=== PATIENT | female | born 1965 | race Caucasian/White ===

== ENCOUNTER 2021-04-10 04:09 | Emergency (ER) | payer MEDICAID ==
[~2021-04-10] VITALS: Ht 175.3 cm; Wt 119.7 kg
[~2021-04-10 04:09] MED LIST: AMOX-999 PO; MIRABULK PO; PROM473S5 PO; RANI-287 PO
[2021-04-10 04:22] VITALS: BP 119/67
--- NOTE | 2021-04-10 04:25 | NUR ---
TO LOBBY A/W BED AMBULATORY
--- NOTE | 2021-04-10 04:30 | NUR ---
PATIENT LEFT WITHOUT BEING SEEN BY DR. MOULTON. NO FURTHER CARE PROVIDED FOR PATIENT.
== END 2021-04-10 04:30 | disposition left against medical advice (07) ==
LOC: MED 04:09
DX: M79.89 Other specified soft tissue disorders (principal); M54.5 Low back pain; Z53.21 Procedure and treatment not carried out due to patient leaving prior to being seen by health care provider

== ENCOUNTER 2021-05-01 11:32 | Emergency (ER) | payer MEDICAID ==
[~2021-05-01] VITALS: Ht 175.3 cm; Wt 125.6 kg
[2021-05-01 11:46] VITALS: BP 125/69
== END 2021-05-01 11:58 | disposition left against medical advice (07) ==
LOC: MED 11:32
DX: M54.9 Dorsalgia, unspecified (principal); M79.89 Other specified soft tissue disorders; Z53.21 Procedure and treatment not carried out due to patient leaving prior to being seen by health care provider

== ENCOUNTER 2021-12-03 01:40 | Emergency (ER) | payer MEDICAID, OTHER ==
[~2021-12-03] VITALS: Ht 175.3 cm; Wt 120.2 kg
[2021-12-03 01:44] VITALS: BP 150/90
--- NOTE | 2021-12-03 01:44 | NUR ---
TO BED AMBULATORY
[2021-12-03] MEDS ORDERED: ONDANSETRON 4 MG/2 ML VIAL IVP ONE (02:25)
[2021-12-03] MEDS ORDERED: fentaNYL citrate 0.05 MG/ML VIAL IVP ONE (02:25)
[2021-12-03 03:33] LABS: HEMOGLOBIN 11.7 g/dL (12.0-16.0)
[2021-12-03 03:37] LABS: BASOPHILS % (AUTO) 0.5 % (0.0-2.0); EOSINOPHILS # (AUTO) 0.1 K/uL (0-0.4); HEMATOCRIT 35.2 % (36-48); LYMPHOCYTES % (AUTO) 27.6 % (20.5-51.1); MEAN CORPUSCULAR HEMOGLOBIN 28 pg (27-31); MEAN CORPUSCULAR HGB CONC 33 g/dL (33-37); MONOCYTES # (AUTO) 0.8 K/uL (0.8-1.0); MONOCYTES % (AUTO) 10.9 % (1.7-9.3); NEUTROPHILS # (AUTO) 4.3 K/uL (1.8-7.7); PLATELET COUNT (AUTO) 334 K/uL (140-450); RED BLOOD CELL COUNT(AUTO) 4.19 MIL/uL (4.20-5.40); WHITE BLOOD COUNT (AUTO) 7.4 K/uL (4.8-10.8)
[2021-12-03 03:52] LABS: ALBUMIN 3.6 g/dL (3.4-5.0); CARBON DIOXIDE 31.7 mmol/L (21-32); POTASSIUM 3.7 mmol/L (3.5-5.1); TOTAL BILIRUBIN 0.4 mg/dL (0.0-1.0)
[2021-12-03] MEDS ORDERED: NACL 0.9% 1,000 ML IV ONE (03:55)
[2021-12-03] MEDS ORDERED: KETOROLAC 30 MG/ML VIAL IVP ONE (04:15)
--- NOTE | 2021-12-03 05:21 | NUR ---
URINE SAMPLE SENT TO LAB
[2021-12-03 05:53] LABS: BILIRUBIN,URINE 1+ (NEGATIVE); BLOOD, URINE TRACE-I (NEGATIVE); COLOR,URINE YELLOW (YELLOW); LEUKOCYTE ESTERASE ,URINE NEGATIVE (NEGATIVE); NITRITE, URINE NEGATIVE (NEGATIVE); UGLUCOSE NEGATIVE (NEGATIVE)
[2021-12-03 05:58] LABS: APPEARANCE,URINE HAZY (CLEAR)
[2021-12-03 06:11] LABS: RBC,URINE 0-5 /HPF (0-5)
[2021-12-03 06:13] LABS: CALCIUM OXALATE CRYSTALS,UR 0-10 /HPF (None Seen); URINE AMORPHOUS URATE 1+ /HPF (None Seen); YEAST,URINE Few /HPF (None Seen)
[2021-12-03 06:14] LABS: HYALINE CASTS, URINE 0-10 /LPF (None Seen)
[2021-12-03] MEDS ORDERED: BEN10 PO (06:35)
[2021-12-03 06:41] VITALS: BP 131/71
[2021-12-03] MEDS ORDERED: PRED20TA5 PO (06:43)
--- NOTE | 2021-12-03 06:55 | NUR ---
Patient discharged with v/s stable. Written and verbal after care instructions given and explained. Patient alert, oriented and verbalized understanding of instructions. Ambulatory with steady gait. All questions addressed prior to discharge. ID band removed. Patient advised to follow up with PMD. Rx of BENTYL AND DELTASONE given. Patient educated on indication of medication including possible reaction and side effects. Opportunity to ask questions provided and answered.
== END 2021-12-03 06:55 | disposition home or self-care (01) ==
LOC: MED 01:40
DX: R10.9 Unspecified abdominal pain (principal); R11.2 Nausea with vomiting, unspecified; K21.9 Gastro-esophageal reflux disease without esophagitis; Z98.890 Other specified postprocedural states; Z79.899 Other long term (current) drug therapy; Z88.5 Allergy status to narcotic agent; Z88.1 Allergy status to other antibiotic agents; Z88.2 Allergy status to sulfonamides
CPT/HCPCS: 36415; 74176; 80053; 81001; 83690; 85025; 87086; 96361; 96374; 96375; 99284; J1885; J2405; J3010

== ENCOUNTER 2022-08-04 08:49 | Emergency (ER) | payer OTHER ==
[~2022-08-04] VITALS: Ht 175.3 cm; Wt 132.6 kg
[~2022-08-04 08:49] MED LIST changes: +BEN10 PO; +CIPR500T4 PO; +PRED20TA5 PO
[2022-08-04 08:50] VITALS: BP 176/87
--- NOTE | 2022-08-04 09:03 | NUR ---
PATIENT AMBULATED TO BED 9.
--- NOTE | 2022-08-04 09:35 | NUR ---
PT 57 YO FEMALE, COMPLAINING OF ABD PAIN BIB SELF. PT IS A/O X4 NO ANDERSON OR DIZZINESS. PT PRESENTED WITH BILATERAL LEG EDEMA +1, DENIES CHEST PAIN LUNG SOUNDS CLEAR NO COUGH NO SOB. PT ABD FIRM AND WARM, SLIGHT DISTENTION LBM LAST NIGHT DENIES VOMITING, STATES SHE HAS BEEN DRY HEAVING. PT STATES URINE IS DARK AND URINATES FREQUENTLY. PT HAS STEADY GAIT. SKIN IS INTACT. HS: PARKINSONS, ULCERATIVE COLITIS, CARDIAC DYSRHYMIA. MEDS: METROPOLOL ALLERGIES: Sulfa, trimethoprim, adverse reaction to morphine codeine and hydromorphone Noted by Darrell Tellez RN
[2022-08-04] MEDS ORDERED: MORPHINE SULFATE 10 MG/ML VIAL IM ONE (09:40)
[2022-08-04] MEDS ORDERED: ONDANSETRON 4 MG ODT PO ONE (09:40)
[2022-08-04 09:54] LABS: APPEARANCE,URINE SL CLOUDY (CLEAR); BILIRUBIN,URINE NEGATIVE (NEGATIVE); BLOOD, URINE TRACE-I (NEGATIVE); COLOR,URINE YELLOW (YELLOW); LEUKOCYTE ESTERASE ,URINE 2+ (NEGATIVE); NITRITE, URINE NEGATIVE (NEGATIVE); UGLUCOSE NEGATIVE (NEGATIVE)
[2022-08-04 09:59] LABS: BASOPHILS % (AUTO) 0.6 % (0.0-2.0); EOSINOPHILS # (AUTO) 0.2 K/uL (0-0.4); EOSINOPHILS % (AUTO) 2.5 % (0.0-4.0); HEMATOCRIT 34.3 % (36-48); LYMPHOCYTES # (AUTO) 2.1 K/uL (2.5-16.5); LYMPHOCYTES % (AUTO) 28.4 % (20.5-51.1); MEAN CORPUSCULAR HEMOGLOBIN 24 pg (27-31); MEAN CORPUSCULAR HGB CONC 32 g/dL (33-37); MEAN CORPUSCULAR VOLUME 75.2 fL (80-94); MONOCYTES # (AUTO) 0.7 K/uL (0.8-1.0); MONOCYTES % (AUTO) 9.7 % (1.7-9.3); NEUTROPHILS # (AUTO) 4.4 K/uL (1.8-7.7); NEUTROPHILS % (AUTO) 58.8 % (42.2-75.2); PLATELET COUNT (AUTO) 355 K/uL (140-450); RED BLOOD CELL COUNT(AUTO) 4.57 MIL/uL (4.20-5.40); RED CELL DISTRIBUTION WIDTH 17.6 % (11.6-13.7); WHITE BLOOD COUNT (AUTO) 7.5 K/uL (4.8-10.8)
[2022-08-04 10:09] LABS: OTHER CASTS, URINE None Seen /LPF (None Seen)
[2022-08-04 10:18] LABS: ALBUMIN 3.5 g/dL (3.4-5.0); ANION GAP 12.7 (8-16); CARBON DIOXIDE 27.2 mmol/L (21-32); CREATININE 1.3 mg/dL (0.6-1.3); POTASSIUM 3.9 mmol/L (3.5-5.1); TOTAL BILIRUBIN 0.5 mg/dL (0.0-1.0)
[2022-08-04] MEDS ORDERED: NAPR-1704 PO (11:58)
[2022-08-04] MEDS ORDERED: ACET-8386 PO (11:58)
[2022-08-04] MEDS ORDERED: GABA400C PO (11:58)
[2022-08-04] MEDS ORDERED: CEPH-588 PO (11:58)
[2022-08-04 12:33] VITALS: BP 100/45
--- NOTE | 2022-08-04 12:33 | NUR ---
Patient discharged with v/s stable. Written and verbal after care instructions given and explained. Patient alert, oriented and verbalized understanding of instructions. Ambulatory with steady gait. All questions addressed prior to discharge. ID band removed. Patient advised to follow up with PMD. Rx of hydrocodone, cephalexin, gabapentin, naproxen (sent) given. Patient educated on indication of medication including possible reaction and side effects. Opportunity to ask questions provided and answered. copy of labs given
== END 2022-08-04 12:33 | disposition home or self-care (01) ==
LOC: MED 08:49
DX: M54.40 Lumbago with sciatica, unspecified side (principal); G89.29 Other chronic pain; I10 Essential (primary) hypertension; G20 Parkinson's disease; Z88.1 Allergy status to other antibiotic agents; Z88.2 Allergy status to sulfonamides; Z88.5 Allergy status to narcotic agent; Z88.8 Allergy status to other drugs, medicaments and biological substances; Z79.899 Other long term (current) drug therapy; Z90.49 Acquired absence of other specified parts of digestive tract; Z98.890 Other specified postprocedural states
CPT/HCPCS: 36415; 80053; 81001; 83690; 85025; 87086; 96372; 99283; J2270; Q0162

== ENCOUNTER 2022-10-09 02:15 | Emergency (ER) | payer OTHER ==
[~2022-10-09] VITALS: Ht 175.3 cm; Wt 143.8 kg
[~2022-10-09 02:15] MED LIST changes: +ACET-8905 PO; +CEPH-588 PO; +GABA400C PO; +NAPR-1704 PO
[2022-10-09 02:24] VITALS: BP 137/75
--- NOTE | 2022-10-09 02:30 | NUR ---
57 Y/O F PRESENTS WITH R KNEE PAIN RADIATING TO LOWER BACK WITH PAIN OF 10/10. PT STATED SHE FELL X4 DAYS AGO. PT STATED SHE HAS PARKINSONS, DENIES ANY BLOOD THINNERS, NVD. SKIN INTACT AND PT IS A&OX4. PMH- PARKINSONS ALLERGIES- CODEINE, MORPHINE, HYDROMORPHONE
--- NOTE | 2022-10-09 02:30 | NUR ---
PT TO 5
--- NOTE | 2022-10-09 02:37 | NUR ---
DR. BARGER AT BEDSIDE
[2022-10-09] MEDS ORDERED: HYDROcodone/APAP 5/325 MG 1 TAB TAB PO ONE (02:45)
--- NOTE | 2022-10-09 02:53 | NUR ---
PT TO XRAY VIA [facility]
--- NOTE | 2022-10-09 03:11 | NUR ---
PT RETURNED FROM XRAY
[2022-10-09] MEDS ORDERED: ACET-9525 PO (03:23)
[2022-10-09 03:36] VITALS: BP 137/75
--- NOTE | 2022-10-09 03:37 | NUR ---
Patient discharged with v/s stable. Written and verbal after care instructions given and explained. Patient verbalized understanding. New orders for norco. Ambulatory with steady gait. Accompanied by friend to drive home. All questions addressed prior to discharge. Advised to follow up with PMD.
== END 2022-10-09 03:33 | disposition home or self-care (01) ==
LOC: MED 02:15
DX: M25.561 Pain in right knee (principal); M54.50 Low back pain, unspecified; G89.29 Other chronic pain; I10 Essential (primary) hypertension; G20 Parkinson's disease; Z88.5 Allergy status to narcotic agent; Z88.2 Allergy status to sulfonamides; Z88.1 Allergy status to other antibiotic agents; Z79.899 Other long term (current) drug therapy; W18.30XA Fall on same level, unspecified, initial encounter; Y93.89 Activity, other specified; Y92.89 Other specified places as the place of occurrence of the external cause; Y99.8 Other external cause status
CPT/HCPCS: 72110; 73562; 99284

== ENCOUNTER 2023-05-22 21:59 | Emergency (ER) | payer MEDICAID, OTHER ==
[~2023-05-22] VITALS: Ht 175.3 cm; Wt 127.0 kg
[~2023-05-22 21:59] MED LIST changes: +ACET-9525 PO
[2023-05-22 22:06] VITALS: BP 122/76; PULSE 79; RESP 16; TEMP 97; O2SAT 99
[2023-05-23] MEDS ORDERED: NACL 0.9% 1,000 ML IV SCH (00:20)
[2023-05-23 00:52] LABS: ALBUMIN 3.4 g/dL (3.4-5.0); ANION GAP 11.9 (8-16); CALCIUM 8.7 mg/dL (8.5-10.1); CARBON DIOXIDE 27.4 mmol/L (21-32); CREATININE 0.9 mg/dL (0.6-1.3); POTASSIUM 4.3 mmol/L (3.5-5.1); TOTAL BILIRUBIN 0.4 mg/dL (0.0-1.0); TOTAL PROTEIN, SERUM 7.1 g/dL (6.4-8.2)
[2023-05-23 00:54] LABS: BASOPHILS # (AUTO) 0.1 K/uL (0.00-0.22); BASOPHILS % (AUTO) 0.8 % (0.0-2.0); EOSINOPHILS # (AUTO) 0.2 K/uL (0-0.4); EOSINOPHILS % (AUTO) 2.4 % (0.0-4.0); HEMATOCRIT 34.7 % (36-48); HEMOGLOBIN 10.9 g/dL (12.0-16.0); LYMPHOCYTES # (AUTO) 1.6 K/uL (2.5-16.5); LYMPHOCYTES % (AUTO) 24.4 % (20.5-51.1); MEAN CORPUSCULAR HEMOGLOBIN 25 pg (27-31); MEAN CORPUSCULAR HGB CONC 32 g/dL (33-37); MEAN CORPUSCULAR VOLUME 79.6 fL (80-94); MONOCYTES # (AUTO) 0.7 K/uL (0.8-1.0); MONOCYTES % (AUTO) 10.7 % (1.7-9.3); NEUTROPHILS # (AUTO) 3.9 K/uL (1.8-7.7); NEUTROPHILS % (AUTO) 61.7 % (42.2-75.2); PLATELET COUNT (AUTO) 305 K/uL (140-450); RED BLOOD CELL COUNT(AUTO) 4.36 MIL/uL (4.20-5.40); RED CELL DISTRIBUTION WIDTH 18.7 % (11.6-13.7); WHITE BLOOD COUNT (AUTO) 6.4 K/uL (4.8-10.8)
[2023-05-23] MEDS ORDERED: HYDROmorphone PFS 2 MG/ML SYR IVP ONE (01:05)
[2023-05-23] MEDS ORDERED: CYCLOBENZAPRINE 10 MG TAB PO ONE (01:05)
[2023-05-23 01:32] LABS: APPEARANCE,URINE CLEAR (CLEAR); BILIRUBIN,URINE NEGATIVE (NEGATIVE); BLOOD, URINE NEGATIVE (NEGATIVE); COLOR,URINE YELLOW (YELLOW); LEUKOCYTE ESTERASE ,URINE TRACE (NEGATIVE); NITRITE, URINE NEGATIVE (NEGATIVE); PROTEIN,URINE NEGATIVE (NEGATIVE); UGLUCOSE NEGATIVE (NEGATIVE)
[2023-05-23 01:35] LABS: BACTERIA,URINE 10-30 (MOD) /HPF (None Seen); MUCUS,URINE 1+ /LPF (None Seen); RBC,URINE 0-5 /HPF (0-5); SQUAMOUS EPITHELIAL CELL,UR 4-10 (MOD) /LPF (0-3 (FEW))
[2023-05-23] MEDS ORDERED: cephALEXin 500 MG CAP PO ONE (03:05)
[2023-05-23 04:11] VITALS: BP 149/86; PULSE 68; RESP 16
[2023-05-23 05:09] VITALS: O2SAT 100
[2023-05-23] MEDS ORDERED: CEPH-588 PO (06:17)
[2023-05-23] MEDS ORDERED: METH4TAB1 PO (06:20)
== END 2023-05-23 06:28 | disposition home or self-care (01) ==
LOC: MED 21:59
DX: N39.0 Urinary tract infection, site not specified (principal); G20 Parkinson's disease; I10 Essential (primary) hypertension; Z88.2 Allergy status to sulfonamides; Z88.5 Allergy status to narcotic agent; Z79.1 Long term (current) use of non-steroidal anti-inflammatories (NSAID); Z79.899 Other long term (current) drug therapy
CPT/HCPCS: 36415; 74177; 80053; 81001; 83690; 85025; 87086; 96361; 96374; 99285; J1170; J7030; Q9967

== ENCOUNTER 2023-08-04 03:35 | Emergency (ER) | payer MEDICAID ==
[~2023-08-04] VITALS: Ht 175.3 cm; Wt 113.4 kg
[~2023-08-04 03:35] MED LIST changes: +METH4TAB1 PO
[2023-08-04 03:43] VITALS: BP 136/79; PULSE 76; RESP 16; TEMP 97.7; O2SAT 97
[2023-08-04] MEDS ORDERED: AMOX-1230 PO (03:59)
[2023-08-04] MEDS ORDERED: KETOROLAC 60 MG/2 ML VIAL IM ONE (04:00)
== END 2023-08-04 04:28 | disposition home or self-care (01) ==
LOC: MED 03:35
DX: K04.7 Periapical abscess without sinus (principal); I10 Essential (primary) hypertension; Z79.899 Other long term (current) drug therapy; Z79.2 Long term (current) use of antibiotics; Z79.1 Long term (current) use of non-steroidal anti-inflammatories (NSAID); Z88.2 Allergy status to sulfonamides; Z88.1 Allergy status to other antibiotic agents
CPT/HCPCS: 96372; 99283; J1885

== ENCOUNTER 2024-04-25 20:59 | Emergency (ER) | payer MEDICAID ==
[~2024-04-25] VITALS: Ht 175.3 cm; Wt 116.1 kg
[~2024-04-25 20:59] MED LIST changes: +AMOX-1230 PO; +DIAZ5TAB6 PO
[2024-04-25 21:08] VITALS: BP 102/65; PULSE 74; RESP 16; TEMP 98; O2SAT 94
[2024-04-25] MEDS: ONDANSETRON 4 MG/2 ML VIAL IVP ONE (21:50)
[2024-04-25] MEDS: KETOROLAC 30 MG/ML VIAL IVP ONE (21:52)
[2024-04-25] MEDS: NACL 0.9% 1,000 ML IV ONE (21:57)
[2024-04-25 22:04] LABS: BASOPHILS % (AUTO) 0.7 % (0.0-2.0); EOSINOPHILS # (AUTO) 0.2 K/uL (0-0.4); EOSINOPHILS % (AUTO) 3.4 % (0.0-4.0); HEMOGLOBIN 12.3 g/dL (12.0-16.0); LYMPHOCYTES # (AUTO) 1.6 K/uL (2.5-16.5); LYMPHOCYTES % (AUTO) 28.2 % (20.5-51.1); MEAN CORPUSCULAR HEMOGLOBIN 30 pg (27-31); MEAN CORPUSCULAR HGB CONC 33 g/dL (33-37); MEAN CORPUSCULAR VOLUME 89.3 fL (80-94); MONOCYTES # (AUTO) 0.6 K/uL (0.8-1.0); MONOCYTES % (AUTO) 10.2 % (1.7-9.3); NEUTROPHILS # (AUTO) 3.2 K/uL (1.8-7.7); NEUTROPHILS % (AUTO) 57.5 % (42.2-75.2); PLATELET COUNT (AUTO) 231 K/uL (140-450); RED BLOOD CELL COUNT(AUTO) 4.14 MIL/uL (4.20-5.40); WHITE BLOOD COUNT (AUTO) 5.6 K/uL (4.8-10.8)
[2024-04-25 22:17] LABS: ANION GAP 14.7 (8-16); CARBON DIOXIDE 26.1 mmol/L (21-32); POTASSIUM 3.8 mmol/L (3.5-5.1)
[2024-04-25 22:19] LABS: INR 1.03 (0.8-1.2); PARTIAL THROMBOPLASTIN TIME 25.2 secs (22-35.6); PROTHROMBIN TIME 10.8 secs (10.8-13.4)
[2024-04-25 22:24] LABS: ALANINE AMINOTRANSFERASE 11 U/L (12-78); ALBUMIN 3.6 g/dL (3.4-5.0); ALKALINE PHOSPHATASE 150 U/L (50-136); ASPARTATE AMINOTRANSFERASE 13 U/L (15-37); BILIRUBIN,DIRECT 0.1 mg/dL (0.0-0.3); LIPASE 36 U/L (16-77); TOTAL BILIRUBIN 0.5 mg/dL (0.0-1.0); TOTAL PROTEIN, SERUM 7.2 g/dL (6.4-8.2)
[2024-04-26] MEDS: HYDROcodone/APAP 5/325 MG 1 TAB TAB PO ONE (00:19)
[2024-04-26] MEDS ORDERED: ACET-8905 PO (00:25)
[2024-04-26 00:36] VITALS: BP 126/77; PULSE 84; RESP 23; TEMP 98; O2SAT 94
[2024-04-26 00:47] LABS: BILIRUBIN,URINE NEGATIVE (NEGATIVE); BLOOD, URINE NEGATIVE (NEGATIVE); COLOR,URINE YELLOW (YELLOW); LEUKOCYTE ESTERASE ,URINE TRACE (NEGATIVE); NITRITE, URINE NEGATIVE (NEGATIVE); PROTEIN,URINE NEGATIVE (NEGATIVE); UGLUCOSE NEGATIVE (NEGATIVE)
[2024-04-26 00:55] LABS: APPEARANCE,URINE SLIGHTLY HAZY (CLEAR)
[2024-04-26 00:58] LABS: RBC,URINE 0-5 /HPF (0-5)
[2024-04-26 00:59] LABS: WBC,URINE 0-5 /HPF (0-5)
[2024-04-26 01:00] LABS: BACTERIA,URINE 1+ /HPF (None Seen); MUCUS,URINE 1+ /LPF (None Seen); SQUAMOUS EPITHELIAL CELL,UR 4-10 (MOD) /LPF (0-3 (FEW))
== END 2024-04-26 00:36 | disposition home or self-care (01) ==
LOC: MED 20:59
DX: R07.89 Other chest pain (principal); R05.9 Cough, unspecified; R06.02 Shortness of breath; R39.11 Hesitancy of micturition; K51.90 Ulcerative colitis, unspecified, without complications; K21.9 Gastro-esophageal reflux disease without esophagitis; Z79.1 Long term (current) use of non-steroidal anti-inflammatories (NSAID); Z79.2 Long term (current) use of antibiotics; Z79.899 Other long term (current) drug therapy; Z88.2 Allergy status to sulfonamides; Z88.8 Allergy status to other drugs, medicaments and biological substances
CPT/HCPCS: 36415; 71045; 74176; 80048; 80076; 81001; 83690; 83880; 84484; 85025; 85610; 85730; 93005; 96361; 96374; 96375; 99285; J1885; J2405; J7030; Q0092

== ENCOUNTER 2024-05-20 13:44 | Emergency (ER) | payer MEDICAID ==
[~2024-05-20] VITALS: Ht 175.3 cm; Wt 115.9 kg
[2024-05-20 13:58] VITALS: BP 126/77; PULSE 77; RESP 18; TEMP 97.7; O2SAT 97
[2024-05-20 15:02] LABS: BASOPHILS % (AUTO) 0.4 % (0.0-2.0); EOSINOPHILS # (AUTO) 0.1 K/uL (0-0.4); EOSINOPHILS % (AUTO) 2.5 % (0.0-4.0); HEMOGLOBIN 11.7 g/dL (12.0-16.0); LYMPHOCYTES # (AUTO) 1.3 K/uL (2.5-16.5); MEAN CORPUSCULAR HEMOGLOBIN 30 pg (27-31); MEAN CORPUSCULAR HGB CONC 33 g/dL (33-37); MEAN CORPUSCULAR VOLUME 90.5 fL (80-94); MONOCYTES # (AUTO) 0.5 K/uL (0.8-1.0); MONOCYTES % (AUTO) 10.1 % (1.7-9.3); NEUTROPHILS # (AUTO) 3.2 K/uL (1.8-7.7); PLATELET COUNT (AUTO) 213 K/uL (140-450); RED BLOOD CELL COUNT(AUTO) 3.87 MIL/uL (4.20-5.40); WHITE BLOOD COUNT (AUTO) 5.2 K/uL (4.8-10.8)
[2024-05-20 15:17] LABS: ALBUMIN 3.1 g/dL (3.4-5.0); BILIRUBIN,DIRECT 0.1 mg/dL (0.0-0.3); TOTAL BILIRUBIN 0.5 mg/dL (0.0-1.0); TOTAL PROTEIN, SERUM 6.4 g/dL (6.4-8.2)
[2024-05-20 15:19] LABS: APPEARANCE,URINE CLEAR (CLEAR); BILIRUBIN,URINE NEGATIVE (NEGATIVE); BLOOD, URINE NEGATIVE (NEGATIVE); COLOR,URINE YELLOW (YELLOW); LEUKOCYTE ESTERASE ,URINE NEGATIVE (NEGATIVE); NITRITE, URINE NEGATIVE (NEGATIVE); PROTEIN,URINE NEGATIVE (NEGATIVE); UGLUCOSE NEGATIVE (NEGATIVE)
[2024-05-20 15:20] LABS: INR 0.99 (0.8-1.2); PROTHROMBIN TIME 10.4 secs (10.8-13.4)
[2024-05-20 15:47] LABS: ANION GAP 12.2 (8-16); CALCIUM 8.4 mg/dL (8.5-10.1); CARBON DIOXIDE 27.2 mmol/L (21-32); CREATININE 0.9 mg/dL (0.6-1.3); POTASSIUM 3.4 mmol/L (3.5-5.1)
[2024-05-20] MEDS ORDERED: MAGN296S70 PO (15:58)
[2024-05-20] MEDS ORDERED: BEN10 PO (15:59)
[2024-05-20] MEDS: KETOROLAC 30 MG/ML VIAL IM ONE (16:11)
[2024-05-20 16:13] VITALS: BP 126/77; PULSE 77; RESP 18; TEMP 97.7; O2SAT 97
== END 2024-05-20 16:13 | disposition home or self-care (01) ==
LOC: MED 13:44
DX: K59.00 Constipation, unspecified (principal); D64.9 Anemia, unspecified; E27.8 Other specified disorders of adrenal gland; K21.9 Gastro-esophageal reflux disease without esophagitis; Z79.1 Long term (current) use of non-steroidal anti-inflammatories (NSAID); Z79.2 Long term (current) use of antibiotics; Z79.899 Other long term (current) drug therapy; Z88.2 Allergy status to sulfonamides; Z88.8 Allergy status to other drugs, medicaments and biological substances
CPT/HCPCS: 36415; 74176; 80048; 80076; 81003; 83690; 85025; 85610; 86886; 86900; 86901; 96372; 99285; J1885

== ENCOUNTER 2024-06-21 15:33 | Emergency (ER) | payer MEDICAID ==
[~2024-06-21] VITALS: Ht 175.3 cm; Wt 113.9 kg
[~2024-06-21 15:33] MED LIST changes: +MAGN296S70 PO
[2024-06-21 16:00] VITALS: BP 127/71; PULSE 89; RESP 20; TEMP 98; O2SAT 96
[2024-06-21 16:15] VITALS: O2SAT 96
[2024-06-21 17:16] LABS: FLU A ANTIGEN negative (NEGATIVE); FLU B ANTIGEN NEGATIVE (NEGATIVE)
[2024-06-21] MEDS ORDERED: ALBU0.0912 IH (17:20)
[2024-06-21] MEDS ORDERED: BENZ200C4 PO (17:20)
== END 2024-06-21 17:40 | disposition home or self-care (01) ==
LOC: MED 15:33
DX: J06.9 Acute upper respiratory infection, unspecified (principal); R07.89 Other chest pain; Z20.822 Contact with and (suspected) exposure to COVID-19; K21.9 Gastro-esophageal reflux disease without esophagitis; Z79.899 Other long term (current) drug therapy; Z88.2 Allergy status to sulfonamides; Z88.1 Allergy status to other antibiotic agents
CPT/HCPCS: 71045; 87426; 87804; 93005; 99285; Q0092